=== PATIENT | male | born 1955 | race Caucasian/White ===

== ENCOUNTER 2016-11-18 12:51 | Emergency (ER) | payer MEDICAID ==
[~2016-11-18] VITALS: Ht 172.7 cm; Wt 75.0 kg
[~2016-11-18 12:51] MED LIST: NOCURR
[2016-11-18] MEDS ORDERED: [UNRECOGNIZED DRUG - CODE] TP (13:02)
[2016-11-18] MEDS ORDERED: KETOROLAC TROMETHAMINE 60 MG/2 ML VIAL IM ONE (14:30)
[2016-11-18 15:21] VITALS: BP 130/74
== END 2016-11-18 15:22 | disposition home or self-care (01) ==
LOC: EMS 12:54
DX: M17.0 Bilateral primary osteoarthritis of knee (principal); M16.11 Unilateral primary osteoarthritis, right hip; F15.90 Other stimulant use, unspecified, uncomplicated; F17.210 Nicotine dependence, cigarettes, uncomplicated
CPT/HCPCS: 96372; 99283; J1885

== ENCOUNTER 2016-12-04 16:19 | Emergency (ER) | payer MEDICAID ==
[~2016-12-04] VITALS: Ht 172.7 cm; Wt 77.0 kg
[~2016-12-04 16:19] MED LIST changes: +[UNRECOGNIZED DRUG - CODE] TP
[2016-12-04] MEDS ORDERED: TRAM50TA4 PO (16:34)
[2016-12-04] MEDS ORDERED: KETOROLAC TROMETHAMINE 60 MG/2 ML VIAL IM ONE (17:30)
[2016-12-04] MEDS ORDERED: HYDROCODONE/ACETAMINOPHEN 10-325 MG TABLET PO ONE (17:30)
[2016-12-04 18:15] VITALS: BP 128/86
== END 2016-12-04 18:30 | disposition home or self-care (01) ==
LOC: EMS 16:20
DX: M25.551 Pain in right hip (principal); M79.651 Pain in right thigh; M19.90 Unspecified osteoarthritis, unspecified site; G89.29 Other chronic pain; F17.210 Nicotine dependence, cigarettes, uncomplicated; F19.90 Other psychoactive substance use, unspecified, uncomplicated
CPT/HCPCS: 96372; 99283; J1885

== ENCOUNTER 2017-03-30 19:27 | Emergency (ER) | payer MEDICAID ==
[~2017-03-30] VITALS: Ht 170.2 cm; Wt 72.5 kg
[~2017-03-30 19:27] MED LIST changes: -NOCURR; +TRAM50TA4 PO; -[UNRECOGNIZED DRUG - CODE] TP
[2017-03-30 21:13] LABS: EOSINOPHILS % (AUTO) 3.2 % (1.0-6.0); HEMOGLOBIN 9.7 g/dL (13.5-17.5); LYMPHOCYTES # (AUTO) 1.7 K/uL (1.0-4.8); LYMPHOCYTES % (AUTO) 27.1 % (22.0-44.0); MEAN CORPUSCULAR HEMOGLOBIN 21.1 pg (26.0-34.0); MEAN CORPUSCULAR HGB CONC 30.3 G/dL (31.0-37.0); MEAN CORPUSCULAR VOLUME 70 fL (80-100); MONOCYTES # (AUTO) 1.1 K/uL (0.1-1.0); MONOCYTES % (AUTO) 17.1 % (2.0-9.0); NEUTROPHILS # (AUTO) 3.3 K/uL (1.8-7.7); NEUTROPHILS % (AUTO) 52.6 % (40.0-70.0); PLATELET COUNT (AUTO) 499 K/uL (150-450); RED BLOOD CELL COUNT(AUTO) 4.59 MIL/uL (4.50-5.90); RED CELL DISTRIBUTION WIDTH 22.7 % (11.5-14.5); WHITE BLOOD COUNT (AUTO) 6.2 K/uL (4.5-11.0)
[2017-03-30 21:21] LABS: INR 1.1 (0.9-1.1); PROTHROMBIN TIME 11.4 SEC (9.4-11.6)
[2017-03-30 21:31] LABS: RBC MORPHOLOGY COMMENT ABNORMAL RBC MORPH
[2017-03-30 21:39] VITALS: BP 158/96
== END 2017-03-30 22:00 | disposition home or self-care (01) ==
LOC: EMS 19:35
DX: R04.0 Epistaxis (principal); F17.210 Nicotine dependence, cigarettes, uncomplicated; F19.90 Other psychoactive substance use, unspecified, uncomplicated
CPT/HCPCS: 99284

== ENCOUNTER 2017-09-08 13:28 | Emergency (ER) | payer MEDICAID ==
[~2017-09-08] VITALS: Ht 177.8 cm; Wt 68.2 kg
[2017-09-08] MEDS ORDERED: KETOROLAC TROMETHAMINE 60 MG/2 ML VIAL IM ONE (16:30)
[2017-09-08 16:45] VITALS: BP 149/78
== END 2017-09-08 16:55 | disposition home or self-care (01) ==
LOC: EMS 13:29
DX: M54.32 Sciatica, left side (principal); R03.0 Elevated blood-pressure reading, without diagnosis of hypertension; F17.210 Nicotine dependence, cigarettes, uncomplicated; F15.10 Other stimulant abuse, uncomplicated; M19.90 Unspecified osteoarthritis, unspecified site; Z59.0 Homelessness
CPT/HCPCS: 96372; 99283; J1885

== ENCOUNTER 2018-01-16 14:34 | Emergency (ER) | payer MEDICAID ==
[~2018-01-16] VITALS: Ht 170.2 cm; Wt 77.3 kg
[2018-01-16 15:49] VITALS: BP 163/86
[2018-01-16] MEDS ORDERED: IBUPROFEN 600 MG TABLET PO ONE (16:15)
== END 2018-01-16 16:29 | disposition home or self-care (01) ==
LOC: EMS 14:36
DX: K02.9 Dental caries, unspecified (principal); R03.0 Elevated blood-pressure reading, without diagnosis of hypertension; F15.90 Other stimulant use, unspecified, uncomplicated; F17.210 Nicotine dependence, cigarettes, uncomplicated; Z59.0 Homelessness
CPT/HCPCS: 99283

== ENCOUNTER 2019-01-19 16:41 | Emergency (ER) | payer SELFPAY ==
[~2019-01-19] VITALS: Ht 175.3 cm; Wt 77.3 kg
[2019-01-19] MEDS ORDERED: PENICILLIN V POTASSIUM 500 MG TABLET PO ONE (17:45)
[2019-01-19] MEDS ORDERED: IBUPROFEN 600 MG TABLET PO ONE (17:45)
[2019-01-19 18:32] VITALS: BP 140/89
== END 2019-01-19 18:48 | disposition home or self-care (01) ==
LOC: EMS 16:43
DX: S80.01XA Contusion of right knee, initial encounter (principal); K08.89 Other specified disorders of teeth and supporting structures; R03.0 Elevated blood-pressure reading, without diagnosis of hypertension; M19.90 Unspecified osteoarthritis, unspecified site; F17.210 Nicotine dependence, cigarettes, uncomplicated; F15.90 Other stimulant use, unspecified, uncomplicated; Z59.0 Homelessness; W14.XXXA Fall from tree, initial encounter; Y93.89 Activity, other specified; Y92.89 Other specified places as the place of occurrence of the external cause; Y99.8 Other external cause status

== ENCOUNTER 2021-09-07 19:34 | Emergency (ER) | payer MEDICAID ==
[~2021-09-07] VITALS: Ht 172.7 cm; Wt 71.8 kg
[2021-09-07 21:01] LABS: EOSINOPHILS % (AUTO) 3.1 % (1.0-6.0); HEMATOCRIT 37.8 % (41-53); HEMOGLOBIN 12.5 g/dL (13.5-17.5); LYMPHOCYTES # (AUTO) 1.6 K/uL (1.0-4.8); LYMPHOCYTES % (AUTO) 16.4 % (22.0-44.0); MEAN CORPUSCULAR HEMOGLOBIN 27.8 pg (26.0-34.0); MEAN CORPUSCULAR HGB CONC 32.9 G/dL (31.0-37.0); MEAN CORPUSCULAR VOLUME 85 fL (80-100); MONOCYTES # (AUTO) 0.8 K/uL (0.1-1.0); MONOCYTES % (AUTO) 8.4 % (2.0-9.0); NEUTROPHILS # (AUTO) 6.8 K/uL (1.8-7.7); NEUTROPHILS % (AUTO) 71.1 % (40.0-70.0); RED BLOOD CELL COUNT(AUTO) 4.48 MIL/uL (4.50-5.90); RED CELL DISTRIBUTION WIDTH 22.3 % (11.5-14.5)
[2021-09-07 21:05] LABS: PLATELET COUNT (AUTO) 853 K/uL (150-450)
[2021-09-07 21:14] LABS: ANION GAP 5 mmol/L (8-16); CALCIUM, TOTAL 8.1 mg/dL (8.8-10.5); CARBON DIOXIDE 30 mmol/L (22-29); CHLORIDE 105 mmol/L (98-107); CREATININE 0.92 mg/dL (0.60-1.30); GLOMERULAR FILTR. RATE CALC > 60 mL/min (>60); GLUCOSE,RANDOM 113 mg/dL (70-110); SODIUM SERUM 140 mmol/L (136-145); UREA NITROGEN, BLOOD 21 mg/dL (7-18)
[2021-09-07 21:17] LABS: ALANINE AMINOTRANSFERASE 30 U/L (12-78); ALBUMIN 3.1 g/dL (3.4-5.0); ALKALINE PHOSPHATASE 78 U/L (46-116); ASPARTATE AMINOTRANSFERASE 20 U/L (15-37); BILIRUBIN,TOTAL 0.2 mg/dL (0.1-1.0); TOTAL PROTEIN, SERUM 6.8 g/dL (6.4-8.2)
[2021-09-07 21:19] LABS: B-TYPE NATRIURETIC PEPTIDE 400 pg/mL (0-100)
[2021-09-07 21:40] LABS: PLATELET MORPHOLOGY COMMENT GIANT PLTS PRESENT
[2021-09-07] MEDS: FUROSEMIDE 20 MG TABLET PO ONE (21:59)
[2021-09-07 22:00] VITALS: BP 141/75
[2021-09-07] MEDS ORDERED: CEPH500B PO (22:00)
[2021-09-07] MEDS ORDERED: FURO-152 PO (22:03)
[2021-09-07] MEDS: CEPHALEXIN MONOHYDRATE 500 MG CAPSULE PO ONE (22:15)
== END 2021-09-07 22:45 | disposition home or self-care (01) ==
LOC: EMS 19:37
DX: L03.116 Cellulitis of left lower limb (principal); L03.115 Cellulitis of right lower limb; R60.0 Localized edema; D75.839 Thrombocytosis, unspecified; M19.90 Unspecified osteoarthritis, unspecified site; F17.210 Nicotine dependence, cigarettes, uncomplicated; F12.90 Cannabis use, unspecified, uncomplicated; F15.90 Other stimulant use, unspecified, uncomplicated
CPT/HCPCS: 71045; 80053; 83880; 84484; 85025; 85379; 93005; 93970; 99285; 36415-L1; 36415-TC

== ENCOUNTER 2022-05-21 18:04 | Emergency (ER) | payer MEDICAID ==
[~2022-05-21] VITALS: Ht 172.7 cm; Wt 73.6 kg
[~2022-05-21 18:04] MED LIST changes: +CEPH500C3 PO; +FURO-152 PO; -TRAM50TA4 PO
[2022-05-21 19:47] LABS: COVID AG,FIA SOURCE NASOPHARYNGEAL
[2022-05-21 19:52] LABS: INFLUENZA TYPE A NEGATIVE FOR TYPE A (NEGATIVE); INFLUENZA TYPE B NEGATIVE FOR TYPE B (NEGATIVE)
[2022-05-21] MEDS ORDERED: BENZ-70 PO ×2 (21:04→21:30)
[2022-05-21 21:25] VITALS: BP 129/78
== END 2022-05-21 21:36 | disposition home or self-care (01) ==
LOC: EMS 18:05
DX: U07.1 COVID-19 (principal); M79.671 Pain in right foot; F17.210 Nicotine dependence, cigarettes, uncomplicated; M19.90 Unspecified osteoarthritis, unspecified site; Z59.00 Homelessness unspecified
CPT/HCPCS: 87804; 99283

== ENCOUNTER 2022-06-01 17:37 | Emergency (ER) | payer MEDICAID ==
[~2022-06-01] VITALS: Ht 167.6 cm; Wt 65.9 kg
[~2022-06-01 17:37] MED LIST changes: +BENZ-70 PO; -CEPH500C3 PO; -FURO-152 PO
[2022-06-01 17:39] VITALS: BP 155/78
[2022-06-01 17:54] LABS: COVID AG,FIA SOURCE NASAL SWAB
== END 2022-06-01 19:19 | disposition home or self-care (01) ==
LOC: EMS 17:42
DX: F17.210 Nicotine dependence, cigarettes, uncomplicated (principal); M19.90 Unspecified osteoarthritis, unspecified site; Z20.822 Contact with and (suspected) exposure to COVID-19
CPT/HCPCS: 99283

== ENCOUNTER 2022-06-29 13:08 | Emergency (ER) | payer MEDICAID ==
[~2022-06-29] VITALS: Ht 167.6 cm; Wt 65.9 kg
[2022-06-29] MEDS ORDERED: ONDANSETRON HCL 4 MG/2 ML VIAL IM ONE (17:15)
[2022-06-29] MEDS ORDERED: LORazepam 2 MG/ML VIAL IM ONE (17:15)
[2022-06-29] MEDS ORDERED: HYDROmorphone HCL 2 MG/ML SYRINGE IM ONE (17:15)
[2022-06-29 18:26] VITALS: BP 117/69
[2022-06-29] MEDS ORDERED: POLY238P PO (20:07)
[2022-06-29] MEDS ORDERED: AMOX1TAB16 PO (20:07)
== END 2022-06-29 22:02 | disposition home or self-care (01) ==
LOC: EMS 13:13
DX: T18.5XXA Foreign body in anus and rectum, initial encounter (principal); F15.10 Other stimulant abuse, uncomplicated; M19.90 Unspecified osteoarthritis, unspecified site; F17.210 Nicotine dependence, cigarettes, uncomplicated; Z59.00 Homelessness unspecified; X58.XXXA Exposure to other specified factors, initial encounter; Y93.89 Activity, other specified; Y92.89 Other specified places as the place of occurrence of the external cause; Y99.8 Other external cause status
CPT/HCPCS: 99284; 74018; 96372; J1170; J2060; J2405

== ENCOUNTER 2022-09-17 19:15 | Emergency (ER) | payer MEDICAID ==
[~2022-09-17] VITALS: Ht 152.4 cm; Wt 67.3 kg
[2022-09-17 19:33] VITALS: BP 140/88
[2022-09-17] MEDS ORDERED: IBUP-1492 PO (19:50)
[2022-09-17] MEDS ORDERED: KETOROLAC TROMETHAMINE 30 MG/ML VIAL IM ONE (20:00)
== END 2022-09-17 20:47 | disposition home or self-care (01) ==
LOC: EMS 19:22
DX: M79.672 Pain in left foot (principal); M19.90 Unspecified osteoarthritis, unspecified site; F17.210 Nicotine dependence, cigarettes, uncomplicated; F15.90 Other stimulant use, unspecified, uncomplicated; Z59.00 Homelessness unspecified
CPT/HCPCS: 99283; 96372; J1885

== ENCOUNTER 2022-09-30 22:36 | Emergency (ER) | payer MEDICAID ==
[~2022-09-30] VITALS: Ht 170.2 cm; Wt 70.5 kg
[~2022-09-30 22:36] MED LIST changes: -BENZ-70 PO; +IBUP-1492 PO
[2022-10-01] MEDS ORDERED: KETOROLAC TROMETHAMINE 30 MG/ML VIAL IM ONE (00:30)
[2022-10-01] MEDS ORDERED: ACETAMINOPHEN 500 MG TABLET PO ONE (00:30)
[2022-10-01 01:15] VITALS: BP 152/91
== END 2022-10-01 01:42 | disposition home or self-care (01) ==
LOC: EMS 22:41
DX: M79.675 Pain in left toe(s) (principal); F15.90 Other stimulant use, unspecified, uncomplicated; F17.210 Nicotine dependence, cigarettes, uncomplicated; M19.90 Unspecified osteoarthritis, unspecified site; Z59.00 Homelessness unspecified
CPT/HCPCS: 99283; 96372; J1885

== ENCOUNTER 2023-03-22 17:16 | Emergency (ER) | payer MEDICAID ==
[~2023-03-22] VITALS: Ht 170.2 cm; Wt 65.9 kg
[~2023-03-22 17:16] MED LIST changes: +ASPI-1444 PO; +FURO20 PO; -IBUP-1492 PO; +LOSA-382 PO; +METO-558 PO; +SPIR-37 PO
[2023-03-22 17:33] VITALS: BP 151/65; PULSE 76; RESP 18; TEMP 98.2
== END 2023-03-22 19:00 | disposition left against medical advice (07) ==
LOC: EMS 17:17
DX: Z02.79 Encounter for issue of other medical certificate (principal); Z53.21 Procedure and treatment not carried out due to patient leaving prior to being seen by health care provider
CPT/HCPCS: 99281; Z7502

== ENCOUNTER 2023-08-13 19:36 | Inpatient (IN) | payer MEDICAID ==
[~2023-08-13] VITALS: Ht 170.2 cm; Wt 55.4 kg
[~2023-08-13 19:36] MED LIST changes: -SPIR-37 PO
[2023-08-13 20:11] LABS: GLUCOMETER DEV NAME(LOC) ER.6; GLUCOSE,POINT OF CARE 127 MG/DL (70-110)
[2023-08-13 21:12] LABS: COVID AG,FIA SOURCE NASAL SWAB
[2023-08-13 21:24] LABS: SARS-COV2 (COVID) ANTIGEN,FIA Negative (Negative)
[2023-08-13 21:33] LABS: APPEARANCE,URINE CLEAR (CLEAR); BILIRUBIN,URINE NEGATIVE (NEGATIVE); COLOR,URINE LIGHT YELLOW (YELLOW); GLUCOSE, URINE (UA) NEGATIVE (NEGATIVE); KETONES,URINE NEGATIVE (NEGATIVE); LEUKOCYTE ESTERASE ,URINE NEGATIVE (NEGATIVE); NITRATE,URINE NEGATIVE (NEGATIVE); OCCULT BLOOD,URINE NEGATIVE (NEGATIVE); PH,URINE 5.5 (5.0-8.0); PROTEIN,URINE 30-70 mg/dL (NEGATIVE); SPECIFIC GRAVITIY, URINE 1.011 (1.003-1.030); UROBILINOGEN,URINE <=1.0 mg/dL (<=1.0)
[2023-08-13 21:33] LABS: BASOPHILS % (AUTO) 1.2 % (0.0-2.0); CALCIUM, TOTAL 8.4 mg/dL (8.8-10.5); CREATININE 1.33 mg/dL (0.60-1.30); EOSINOPHILS % (AUTO) 1.2 % (1.0-6.0); HEMOGLOBIN 10.6 g/dL (13.5-17.5); LYMPHOCYTES # (AUTO) 1.5 K/uL (1.0-4.8); LYMPHOCYTES % (AUTO) 6.2 % (22.0-44.0); MEAN CORPUSCULAR HGB CONC 30.3 G/dL (31.0-37.0); MEAN CORPUSCULAR VOLUME 69 fL (80-100); MONOCYTES # (AUTO) 1.2 K/uL (0.1-1.0); MONOCYTES % (AUTO) 4.9 % (2.0-9.0); NEUTROPHILS # (AUTO) 20.9 K/uL (1.8-7.7); POTASSIUM 3.9 mmol/L (3.5-5.1); RED BLOOD CELL COUNT(AUTO) 5.05 MIL/uL (4.50-5.90); RED CELL DISTRIBUTION WIDTH 22.6 % (11.5-14.5); WHITE BLOOD COUNT (AUTO) 24.2 K/uL (4.5-11.0)
[2023-08-13 21:37] LABS: NEUTROPHILS % (AUTO) 86.5 % (40.0-70.0); PLATELET COUNT (AUTO) 932 K/uL (150-450)
[2023-08-13 21:44] LABS: TROPONIN I-HIGH SENSITIVITY 34 ng/L (<76)
[2023-08-13 21:58] LABS: ALBUMIN 3.1 g/dL (3.4-5.0); BILIRUBIN,TOTAL 0.4 mg/dL (0.1-1.0); TOTAL PROTEIN, SERUM 6.9 g/dL (6.4-8.2)
[2023-08-13 21:59] LABS: RBC MORPHOLOGY COMMENT ABNORMAL RBC MORPH
[2023-08-13] MEDS: FUROSEMIDE 40 MG/4 ML VIAL IVP ONE (22:50)
[2023-08-13] MEDS: ASPIRIN 325 MG TABLET PO ONE (22:50)
[2023-08-13 23:48] LABS: INR 1.2 (0.9-1.1); LACTIC ACID 0.8 mmol/L (0.4-2.0); PROTHROMBIN TIME 12.4 SEC (9.4-11.6)
[2023-08-13] MEDS: METOPROLOL SUCCINATE 50 MG ER TABLET PO ONE (23:51)
[2023-08-13] MEDS: CefTRIAXone 1 GM/DEXTROSE 50 ML IV ONE (23:57)
[2023-08-14] MEDS: AZITHROMYCIN 500 MG/NS 250 ML IV ONE (00:01)
[2023-08-14 04:00] VITALS: BP 148/76; PULSE 75; RESP 18; TEMP 97.9
[2023-08-14 07:43] VITALS: BP 143/86; PULSE 67; RESP 18; TEMP 97.8
[2023-08-14] MEDS ORDERED: IPRATROPIUM BROMIDE 0.5 MG/2.5 ML NEB SOLUTION NEB PRN (08:45)
[2023-08-14] MEDS ORDERED: ONDANSETRON HCL 4 MG/2 ML VIAL IVP PRN (08:45)
[2023-08-14] MEDS ORDERED: ZOLPIDEM TARTRATE 5 MG TABLET PO PRN (08:45)
[2023-08-14] MEDS ORDERED: MORPHINE SULFATE 2 MG/ML SYRINGE IVP PRN (08:45)
[2023-08-14] MEDS ORDERED: ALBUTEROL SULFATE 2.5 MG/0.5 ML NEB SOLUTION NEB PRN (08:45)
[2023-08-14] MEDS ORDERED: HYDROCODONE/ACETAMINOPHEN 5-325 MG TABLET PO PRN (08:45)
[2023-08-14] MEDS ORDERED: BISACODYL 10 MG RECTAL RECTAL SUPPOSITORY PR PRN (08:45)
[2023-08-14] MEDS ORDERED: MAGNESIUM HYDROXIDE SUSPENSION 30 ML UDCUP PO PRN (08:45)
[2023-08-14] MEDS ORDERED: ACETAMINOPHEN 325 MG TABLET PO PRN (08:45)
[2023-08-14] MEDS: ASPIRIN 81 MG DR TABLET PO SCH (09:43)
[2023-08-14] MEDS: LOSARTAN POTASSIUM 50 MG TABLET PO SCH (09:43)
[2023-08-14] MEDS: PANTOPRAZOLE SODIUM 40 MG DR TABLET PO SCH (09:43)
[2023-08-14] MEDS: METOPROLOL SUCCINATE 50 MG ER TABLET PO SCH (09:43)
[2023-08-14] MEDS: FUROSEMIDE 40 MG/4 ML VIAL IVP SCH (09:44)
[2023-08-14 12:26] VITALS: BP 139/70; PULSE 66; RESP 18; TEMP 98
[2023-08-14] MEDS: HEPARIN SODIUM,PORCINE 5,000 UNITS/ML VIAL SQ SCH (16:08)
[2023-08-14 16:31] VITALS: BP 122/67; PULSE 58; RESP 18; TEMP 98.4
[2023-08-14 20:24] VITALS: BP 113/71; PULSE 57; RESP 20; TEMP 98
[2023-08-15 00:43] VITALS: BP 135/72; PULSE 58; RESP 20; TEMP 98.3
[2023-08-15 04:52] VITALS: BP 145/89; PULSE 58; RESP 20; TEMP 97.9
[2023-08-15 07:09] LABS: BASOPHILS % (AUTO) 2.3 % (0.0-2.0); EOSINOPHILS % (AUTO) 2.6 % (1.0-6.0); HEMATOCRIT 33.8 % (41-53); HEMOGLOBIN 10.3 g/dL (13.5-17.5); LYMPHOCYTES # (AUTO) 1.9 K/uL (1.0-4.8); LYMPHOCYTES % (AUTO) 10.4 % (22.0-44.0); MEAN CORPUSCULAR HEMOGLOBIN 21.3 pg (26.0-34.0); MEAN CORPUSCULAR HGB CONC 30.6 G/dL (31.0-37.0); MEAN CORPUSCULAR VOLUME 70 fL (80-100); MONOCYTES # (AUTO) 1.3 K/uL (0.1-1.0); NEUTROPHILS # (AUTO) 14.2 K/uL (1.8-7.7); NEUTROPHILS % (AUTO) 77.7 % (40.0-70.0); RED BLOOD CELL COUNT(AUTO) 4.86 MIL/uL (4.50-5.90); RED CELL DISTRIBUTION WIDTH 22.4 % (11.5-14.5); WHITE BLOOD COUNT (AUTO) 18.2 K/uL (4.5-11.0)
[2023-08-15 07:12] LABS: CALCIUM, TOTAL 8.1 mg/dL (8.8-10.5); CREATININE 1.33 mg/dL (0.60-1.30); POTASSIUM 3.9 mmol/L (3.5-5.1)
[2023-08-15 07:25] LABS: PLATELET COUNT (AUTO) 822 K/uL (150-450)
[2023-08-15 08:38] LABS: RBC MORPHOLOGY COMMENT ABNORMAL RBC MORPH
[2023-08-15 09:05] VITALS: BP 132/70; PULSE 59; RESP 18; TEMP 98
[2023-08-15 12:00] VITALS: BP 128/80; PULSE 59; RESP 18; TEMP 98.2
[2023-08-15 15:37] VITALS: BP 142/85; PULSE 61; RESP 18; TEMP 98.2
[2023-08-15 19:53] VITALS: BP 137/69; PULSE 59; RESP 18; TEMP 98.1
[2023-08-15] MEDS ORDERED: SODIUM CHLORIDE 0.9% 0 ML IV ONE (23:49)
[2023-08-15] MEDS ORDERED: SODIUM CHLORIDE 0.9% 250 ML IV ONE (23:50)
[2023-08-16] VITALS (7 sets, daily range): BP systolic 127–156; BP diastolic 62–83; PULSE 62–69; RESP 17–20; TEMP 97–98.9
[2023-08-16] MEDS: CefTRIAXone 1 GM/DEXTROSE 50 ML IV SCH (00:43)
[2023-08-16 07:33] LABS: BASOPHILS % (AUTO) 1.4 % (0.0-2.0); EOSINOPHILS % (AUTO) 2.2 % (1.0-6.0); HEMATOCRIT 34.4 % (41-53); HEMOGLOBIN 10.5 g/dL (13.5-17.5); LYMPHOCYTES # (AUTO) 1.9 K/uL (1.0-4.8); LYMPHOCYTES % (AUTO) 8.6 % (22.0-44.0); MEAN CORPUSCULAR HEMOGLOBIN 21.1 pg (26.0-34.0); MEAN CORPUSCULAR HGB CONC 30.5 G/dL (31.0-37.0); MEAN CORPUSCULAR VOLUME 69 fL (80-100); MONOCYTES # (AUTO) 1.6 K/uL (0.1-1.0); MONOCYTES % (AUTO) 7.4 % (2.0-9.0); NEUTROPHILS # (AUTO) 17.4 K/uL (1.8-7.7); NEUTROPHILS % (AUTO) 80.4 % (40.0-70.0); RED BLOOD CELL COUNT(AUTO) 4.98 MIL/uL (4.50-5.90); RED CELL DISTRIBUTION WIDTH 22.5 % (11.5-14.5); WHITE BLOOD COUNT (AUTO) 21.7 K/uL (4.5-11.0)
[2023-08-16 07:47] LABS: CALCIUM, TOTAL 8.3 mg/dL (8.8-10.5); CREATININE 1.21 mg/dL (0.60-1.30); POTASSIUM 3.7 mmol/L (3.5-5.1)
[2023-08-16 08:01] LABS: PLATELET COUNT (AUTO) 896 K/uL (150-450); RBC MORPHOLOGY COMMENT ABNORMAL RBC MORPH
[2023-08-16] MEDS ORDERED: FURO20 PO (15:20)
[2023-08-16] MEDS ORDERED: DOXY-354 PO (15:20)
[2023-08-16] MEDS ORDERED: METO-558 PO (15:20)
[2023-08-16] MEDS ORDERED: LOSA-382 PO (15:20)
[2023-08-16] MEDS ORDERED: ASPI-1444 PO (15:20)
[2023-08-16] MEDS: VANCOMYCIN HCL 1.25 GM in DEXTROSE 5%-WATER 250 ML IV ONE (17:46)
[2023-08-17 05:04] VITALS: BP 148/64; PULSE 66; RESP 18; TEMP 98.1
[2023-08-17 06:11] LABS: CALCIUM, TOTAL 8.7 mg/dL (8.8-10.5); CREATININE 1.34 mg/dL (0.60-1.30); POTASSIUM 4.4 mmol/L (3.5-5.1)
[2023-08-17 08:25] VITALS: BP 140/72; PULSE 66; RESP 18; TEMP 98.3
[2023-08-17] MEDS: VANCOMYCIN HCL 750 MG in DEXTROSE 5%-WATER 250 ML IV SCH (09:07)
[2023-08-17 11:26] VITALS: BP 135/63; PULSE 69; RESP 18; TEMP 98.1
[2023-08-17 15:27] VITALS: BP 144/70; PULSE 69; RESP 19; TEMP 97.7
[2023-08-17] MEDS ORDERED: CLOT15CR29 TP (17:27)
[2023-08-17] MEDS ORDERED: CLOTRIMAZOLE 1% 15 GM CREAM TP SCH (21:00)
== END 2023-08-17 18:45 | disposition home or self-care (01) | DRG 194 ==
LOC: EMS 19:46 → 5S 08-14 00:29
PROVIDERS: ADMIT Hospitalist; ATTEND Hospitalist
DX: I11.0 Hypertensive heart disease with heart failure (principal); N17.9 Acute kidney failure, unspecified; E44.0 Moderate protein-calorie malnutrition; I42.9 Cardiomyopathy, unspecified; B35.3 Tinea pedis; D64.9 Anemia, unspecified; I50.43 Acute on chronic combined systolic (congestive) and diastolic (congestive) heart failure; Z68.1 Body mass index [BMI] 19.9 or less, adult; Z20.822 Contact with and (suspected) exposure to COVID-19; D75.839 Thrombocytosis, unspecified; I07.1 Rheumatic tricuspid insufficiency; F15.10 Other stimulant abuse, uncomplicated; F17.210 Nicotine dependence, cigarettes, uncomplicated; Z59.02 Unsheltered homelessness
CPT/HCPCS: 71045; 80048; 80053; 81003; 82550; 82962; 83605; 83880; 84145; 84484; 85025; 85610; 87040; 93005; 99291; J0456; J0696; J1644; J1940; J3370; J7040; J7050; J7060; 36415-L1; 36415-TC

== ENCOUNTER 2023-08-19 15:55 | Emergency (ER) | payer MEDICAID ==
[~2023-08-19] VITALS: Ht 180.3 cm; Wt 72.0 kg
[~2023-08-19 15:55] MED LIST changes: +CLOT15CR29 TP; +DOXY-354 PO
[2023-08-19 16:11] VITALS: TEMP 98.3
[2023-08-19 18:07] VITALS: BP 150/88; PULSE 85; RESP 16
== END 2023-08-19 18:08 | disposition home or self-care (01) ==
LOC: EMS 15:59
DX: N50.89 Other specified disorders of the male genital organs (principal); F17.210 Nicotine dependence, cigarettes, uncomplicated; Z59.00 Homelessness unspecified
CPT/HCPCS: 99283

== ENCOUNTER 2024-09-15 13:54 | Emergency (ER) | payer MEDICAID ==
[~2024-09-15] VITALS: Ht 167.6 cm; Wt 70.5 kg
[~2024-09-15 13:54] MED LIST changes: -CLOT15CR29 TP; -DOXY-354 PO; -FURO20 PO; +FURO20TA5 PO; +METO-325 PO; -METO-558 PO
[2024-09-15 13:58] VITALS: TEMP 98.1
[2024-09-15] MEDS ORDERED: CARV3.1231 PO (14:00)
[2024-09-15] MEDS ORDERED: FURO20TA4 PO (14:00)
[2024-09-15] MEDS ORDERED: HYDR500 PO (14:00)
[2024-09-15] MEDS ORDERED: AMLO-513 PO (14:00)
[2024-09-15] MEDS ORDERED: TERB250T90 PO (14:47)
[2024-09-15] MEDS ORDERED: CEPH-558 PO (14:47)
[2024-09-15 15:10] VITALS: BP 148/72; PULSE 70; RESP 16; O2SAT 99
== END 2024-09-15 15:32 | disposition home or self-care (01) ==
LOC: EMS 13:56
DX: B35.1 Tinea unguium (principal); I11.0 Hypertensive heart disease with heart failure; I50.9 Heart failure, unspecified; F17.210 Nicotine dependence, cigarettes, uncomplicated; Z59.00 Homelessness unspecified; Z79.64 Long term (current) use of myelosuppressive agent; Z79.899 Other long term (current) drug therapy
CPT/HCPCS: 99283; Z7502

== ENCOUNTER 2025-02-18 20:46 | Inpatient (IN) | payer MEDICAID ==
[~2025-02-18] VITALS: Ht 177.8 cm; Wt 81.9 kg
[~2025-02-18 20:46] MED LIST changes: +AMLO-513 PO; -ASPI-1444 PO; +CALCIUM CHLORIDE 100 MG/ML 10 ML SYRINGE IVP ONE; +CARV3.1231 PO; +CEPH-558 PO; +EPINEPHrine 1:10,000 [1 MG/10 ML] SYRINGE ONE; +FURO20TA4 PO; -FURO20TA5 PO; +HYDR500 PO; -LOSA-382 PO; -METO-325 PO; +SODIUM BICARBONATE [ADULT] 8.4% 50 MEQ/50 ML SYRINGE IVP ONE; +TERB250T90 PO; +VERAPAMIL HCL 2.5 MG/ML 2 ML VIAL ONE
[2025-02-18 22:31] LABS: GLUCOMETER DEV NAME(LOC) ERT.7; GLUCOSE,POINT OF CARE 179 MG/DL (70-110)
[2025-02-18 22:33] LABS: CALCIUM, TOTAL 8.5 mg/dL (8.8-10.5); CREATININE 4.68 mg/dL (0.60-1.30); GLOMERULAR FILTR. RATE CALC 12 mL/min (>60); GLUCOSE,RANDOM 242 mg/dL (70-110); SODIUM SERUM 158 mmol/L (136-145)
[2025-02-18 22:34] LABS: RED BLOOD CELL COUNT(AUTO) 2.22 MIL/uL (4.50-5.90); RED CELL DISTRIBUTION WIDTH 25.4 % (11.5-14.5)
[2025-02-18 22:36] LABS: ALCOHOL, BLOOD (SERUM) < 3 mg/dL (0-10)
[2025-02-18 22:38] LABS: UREA NITROGEN, BLOOD 116 mg/dL (7-18)
[2025-02-18 22:39] LABS: ASPARTATE AMINOTRANSFERASE 57 U/L (15-37); CREATINE KINASE, TOTAL ONLY 924 U/L (39-308); PLATELET COUNT (AUTO) 1869 K/uL (150-450); TOTAL PROTEIN, SERUM 6.3 g/dL (6.4-8.2); WHITE BLOOD COUNT (AUTO) 87.7 K/uL (4.5-11.0)
[2025-02-18 22:47] LABS: TROPONIN I-HIGH SENSITIVITY 42 ng/L (<76)
[2025-02-18 22:56] LABS: LACTIC ACID 19.7 mmol/L (0.4-2.0)
[2025-02-18 22:58] LABS: BAND NEUTROPHILS % (MANUAL) 7 % (0-5); LYMPHOCYTES % (MANUAL) 13 % (22-44); MONOCYTES % (MANUAL) 3 % (2-9); REACTIVE LYMPHOCYTES 5 % (0-0); SEGMENTED NEUTROPHILS % 72 % (40-70)
[2025-02-18 23:00] LABS: NUCLEATED RED BLOOD CELLS 2.0 % (0.0-0.0)
[2025-02-18] MEDS ORDERED: INSULIN LISPRO 100 UNITS/ML SQ PRN (23:00)
[2025-02-18] MEDS ORDERED: ONDANSETRON HCL 4 MG/2 ML VIAL IVP PRN (23:00)
[2025-02-18] MEDS ORDERED: ACETAMINOPHEN 325 MG TABLET PO PRN (23:00)
[2025-02-18 23:07] LABS: PLATELET MORPHOLOGY COMMENT GIANT PLTS; RBC MORPHOLOGY COMMENT DIMORPHIC
[2025-02-18] MEDS: SODIUM CHLORIDE 0.9% 2,150 ML IV ONE (23:09)
[2025-02-18] MEDS: PROPOFOL 1000 MG/ISO-OSM 100 ML IV PRN (23:10)
[2025-02-18 23:25] VITALS: PULSE 74; RESP 22; O2SAT 74; O2SAT 92
[2025-02-18] MEDS: DEXTROSE 50%-WATER 25 GM/50 ML SYRINGE IVP ONE (23:30)
[2025-02-18] MEDS: INSULIN REGULAR, HUMAN 100 UNITS/ML IVP ONE (23:31)
[2025-02-18] MEDS: PIPERACILLIN/TAZO 3.375 GM/D5W 50 ML IV ONE (23:34)
[2025-02-18 23:45] LABS: GLUCOMETER DEV NAME(LOC) ER.7; GLUCOSE,POINT OF CARE 121 MG/DL (70-110)
[2025-02-18] MEDS ORDERED: PANTOPRAZOLE SODIUM 40 MG/VIAL IVP SCH (23:45)
[2025-02-18] MEDS: VANCOMYCIN 1GM/WATER(PEG/NADA) 200 ML IV ONE (23:49)
[2025-02-19] VITALS (44 sets, daily range): BP systolic 90–158; BP diastolic 36–70; PULSE 65–104; RESP 18–30; TEMP 90.4–100.5; O2SAT 95–100
[2025-02-19] MEDS ORDERED: HEPARIN SODIUM,PORCINE 5,000 UNITS/ML VIAL SQ SCH
[2025-02-19] MEDS: PANTOPRAZOLE SODIUM 80 MG in SODIUM CHLORIDE 0.9% 100 ML IV SCH (00:10)
[2025-02-19 00:20] LABS: % IRON SATURATION 3.6 % (30-44); IRON, SERUM 12.0 mcg/dL (50-175)
[2025-02-19] MEDS: NOREPINEPHRINE 8 MG/0.9 % NACL 250 ML IV PRN ×2 (00:56→21:04)
[2025-02-19 01:28] LABS: ABG BASE EXCESS -24.9 mmol/L (-2.0-3.0); ABG CARBOXYHEMOGLOBIN 0.4 % (0.5-1.5); ABG HCO3 6.9 mmol/L (21.0-28.0); ABG METHEMOGLOBIN 3.5 % (0.0-1.5); ABG OXYGEN CONTENT 7.1 mL/dL (15.0-23.0); ABG OXYGEN SATURATION 99.7 % (94.0-98.0); ABG OXYHEMOGLOBIN 95.8 % (94.0-98.0); ABG PCO2 29 mmHg (32.0-48.0); FRACTIONATED INSPIRED OXYGEN 100.0 % (21-100.0); SOURCE, BLOOD GAS ARTERIAL; TEMPERATURE, FAHRENHEIT, BG 89.7 FAHREN (96.0-98.6)
[2025-02-19 01:29] LABS: ABG PH 6.991 (7.350-7.450); PO2, ARTERIAL BG 476.7 mmHg (83.0-108.0)
[2025-02-19 01:31] LABS: ABG A-A DIFF O2 218.5 mmHg (10-20.0); ABG TOTAL HEMOGLOBIN 4.1 G/dL (13.5-17.5); ALLEN TEST, BLOOD GAS Positive; SITE, BLOOD GAS RT RADIAL
[2025-02-19 01:32] LABS: INSPIRATORY TIME, BG 0.90 SEC; O2 DEVICE,BLOOD GAS VENTILATOR (ROOM AIR); PATIENT RATE, BG 22.0 min.; PEEP,BG 5 cm H2O; SET RATE, BG 22.0 min.; SPONTANEOUS VT, BG 549 ml; VT, ABG 530 ml
[2025-02-19] MEDS: SODIUM BICARBONATE [ADULT] 8.4% 50 MEQ/50 ML SYRINGE IVP ONE ×2 (01:44→07:00)
[2025-02-19 03:37] LABS: ABG BASE EXCESS -17.9 mmol/L (-2.0-3.0); ABG CARBOXYHEMOGLOBIN 1.5 % (0.5-1.5); ABG HCO3 11.2 mmol/L (21.0-28.0); ABG METHEMOGLOBIN 2.8 % (0.0-1.5); ABG OXYGEN CONTENT 4.3 mL/dL (15.0-23.0); ABG OXYHEMOGLOBIN 60.6 % (94.0-98.0); ABG PCO2 40 mmHg (32.0-48.0); FRACTIONATED INSPIRED OXYGEN 70.0 % (21-100.0); SOURCE, BLOOD GAS ARTERIAL; TEMPERATURE, FAHRENHEIT, BG 91.3 FAHREN (96.0-98.6)
[2025-02-19 03:42] LABS: ABG PH 7.090 (7.350-7.450)
[2025-02-19 03:43] LABS: ABG A-A DIFF O2 425.2 mmHg (10-20.0); ABG OXYGEN SATURATION 63.3 % (94.0-98.0); ABG TOTAL HEMOGLOBIN 4.9 G/dL (13.5-17.5); ALLEN TEST, BLOOD GAS Positive; O2 DEVICE,BLOOD GAS VENTILATOR (ROOM AIR); PO2, ARTERIAL BG 37.2 mmHg (83.0-108.0); SITE, BLOOD GAS LFT RADIAL
[2025-02-19 03:44] LABS: INSPIRATORY TIME, BG 0.90 SEC; PATIENT RATE, BG 18.0 min.; PEEP,BG 5 cm H2O; SET RATE, BG 18.0 min.; SPONTANEOUS VT, BG 524 ml; VT, ABG 530 ml
[2025-02-19] MEDS: FentaNYL CIT 1000MCG/0.9% NACL 100 ML IV PRN ×2 (04:10→18:30)
[2025-02-19] MEDS: LACTULOSE 20 GM/30 ML SOLUTION UDCUP PO SCH (04:11)
[2025-02-19 04:34] LABS: ABG BASE EXCESS -14.3 mmol/L (-2.0-3.0); ABG CARBOXYHEMOGLOBIN 0.7 % (0.5-1.5); ABG HCO3 13.8 mmol/L (21.0-28.0); ABG METHEMOGLOBIN 2.8 % (0.0-1.5); ABG OXYGEN CONTENT 8.1 mL/dL (15.0-23.0); ABG OXYGEN SATURATION 100.0 % (94.0-98.0); ABG OXYHEMOGLOBIN 96.5 % (94.0-98.0); ABG PCO2 33 mmHg (32.0-48.0); FRACTIONATED INSPIRED OXYGEN 70.0 % (21-100.0); SOURCE, BLOOD GAS ARTERIAL; TEMPERATURE, FAHRENHEIT, BG 93.7 FAHREN (96.0-98.6)
[2025-02-19 04:37] LABS: ABG PH 7.224 (7.350-7.450); ABG TOTAL HEMOGLOBIN 5.3 G/dL (13.5-17.5); ALLEN TEST, BLOOD GAS Positive; PO2, ARTERIAL BG 303.0 mmHg (83.0-108.0); SITE, BLOOD GAS LFT RADIAL
[2025-02-19 04:38] LABS: ABG A-A DIFF O2 164.8 mmHg (10-20.0); INSPIRATORY TIME, BG 0.90 SEC; O2 DEVICE,BLOOD GAS VENTILATOR (ROOM AIR); PATIENT RATE, BG 26.0 min.; PEEP,BG 5 cm H2O; SET RATE, BG 18.0 min.; SPONTANEOUS VT, BG 523 ml; VT, ABG 530 ml
[2025-02-19] MEDS: MIDAZOLAM HCL 2 MG/2 ML VIAL IVP ONE (04:51)
[2025-02-19 05:11] LABS: APPEARANCE,URINE TURBID (CLEAR); GLUCOSE, URINE (UA) NEGATIVE (NEGATIVE); LEUKOCYTE ESTERASE ,URINE LARGE (NEGATIVE); NITRATE,URINE NEGATIVE (NEGATIVE); OCCULT BLOOD,URINE LARGE (NEGATIVE); PH,URINE DRUG SCREEN 7.5 (5.0-8.0); SPECIFIC GRAVITIY, URINE 1.019 (1.003-1.030)
[2025-02-19 05:21] LABS: ALCOHOL, URINE DRUG SCREEN NEGATIVE (NEGATIVE); AMPHET/METH SCREEN,URINE POSITIVE (NEGATIVE); BARBITURATE SCREEN, URINE NEGATIVE (NEGATIVE); CANNABINOID SCREEN,URINE NEGATIVE (NEGATIVE); COCAINE SCREEN,URINE NEGATIVE (NEGATIVE); METHADONE SCREEN, URINE NEGATIVE (NEGATIVE)
[2025-02-19 05:29] LABS: SQUAMOUS EPITHELIAL CELL,UR Rare /LPF (None Seen); SULFOSALICYLIC ACID,URINE 2+ (Negative)
[2025-02-19] MEDS: PIPERACILLIN SODIUM/TAZOBACTAM 2.25 GM in DEXTROSE 5%-WATER 50 ML IV SCH ×2 (06:05→19:25)
[2025-02-19 06:19] LABS: RED BLOOD CELL COUNT(AUTO) 2.39 MIL/uL (4.50-5.90); RED CELL DISTRIBUTION WIDTH 26.1 % (11.5-14.5)
[2025-02-19 06:26] LABS: WHITE BLOOD COUNT (AUTO) 74.3 K/uL (4.5-11.0)
[2025-02-19 06:27] LABS: PLATELET COUNT (AUTO) 1490 K/uL (150-450)
[2025-02-19 06:52] LABS: CALCIUM, TOTAL 6.0 mg/dL (8.8-10.5); CREATININE 3.71 mg/dL (0.60-1.30); GLOMERULAR FILTR. RATE CALC 16.0 mL/min (>60); GLUCOSE,RANDOM 70.0 mg/dL (70-110); SODIUM SERUM 159.0 mmol/L (136-145); UREA NITROGEN, BLOOD 99.0 mg/dL (7-18)
[2025-02-19 07:07] LABS: BAND NEUTROPHILS % (MANUAL) 8 % (0-5); LYMPHOCYTES % (MANUAL) 14 % (22-44); MONOCYTES % (MANUAL) 3 % (2-9); REACTIVE LYMPHOCYTES 3 % (0-0); SEGMENTED NEUTROPHILS % 72 % (40-70)
[2025-02-19 07:08] LABS: RBC MORPHOLOGY COMMENT DIMORPHIC
[2025-02-19] MEDS: DOCUSATE SODIUM 100 MG CAPSULE PO SCH (08:07)
[2025-02-19 08:35] LABS: ABG A-A DIFF O2 173.0 mmHg (10-20.0); ABG BASE EXCESS -7.4 mmol/L (-2.0-3.0); ABG CARBOXYHEMOGLOBIN 1.1 % (0.5-1.5); ABG HCO3 18.9 mmol/L (21.0-28.0); ABG METHEMOGLOBIN 0.3 % (0.0-1.5); ABG OXYGEN CONTENT 10.9 mL/dL (15.0-23.0); ABG OXYGEN SATURATION 99.8 % (94.0-98.0); ABG OXYHEMOGLOBIN 98.4 % (94.0-98.0); ABG PCO2 38 mmHg (32.0-48.0); ABG PH 7.311 (7.350-7.450); ABG TOTAL HEMOGLOBIN 7.2 G/dL (13.5-17.5); ALLEN TEST, BLOOD GAS Positive; FRACTIONATED INSPIRED OXYGEN 80.0 % (21-100.0); O2 DEVICE,BLOOD GAS VENTILATOR (ROOM AIR); PATIENT RATE, BG 18.0 min.; PEEP,BG 5 cm H2O; PO2, ARTERIAL BG 354.9 mmHg (83.0-108.0); SET RATE, BG 18.0 min.; SITE, BLOOD GAS RT RADIAL; SOURCE, BLOOD GAS ARTERIAL; TEMPERATURE, FAHRENHEIT, BG 100.6 FAHREN (96.0-98.6); VT, ABG 530 ml
[2025-02-19] MEDS: CHLORHEXIDINE GLUCONATE 0.12% 15 ML UDCUP ORAL RINSE MM SCH (09:00)
[2025-02-19] MEDS: HYDROXYUREA 500 MG CAPSULE PO SCH (09:00)
[2025-02-19] MEDS ORDERED: ROCURONIUM BROMIDE 10 MG/ML 5 ML VIAL ONE (09:49)
[2025-02-19] MEDS ORDERED: HEPARIN SODIUM,PORCINE 10,000 UNITS/ML VIAL ONE (09:49)
[2025-02-19] MEDS ORDERED: ALBUMIN HUMAN 25%-12.5GM/50ML IV BOTTLE ONE (10:00)
[2025-02-19] MEDS ORDERED: HEPARIN SODIUM,PORCINE 1,000 UNITS/ML VIAL ONE (10:00)
[2025-02-19] MEDS: DEXTROSE 5%-WATER 500 ML IV ONE (11:14)
[2025-02-19 11:37] LABS: RED BLOOD CELL COUNT(AUTO) 2.83 MIL/uL (4.50-5.90); RED CELL DISTRIBUTION WIDTH 24.1 % (11.5-14.5)
[2025-02-19 11:40] LABS: WHITE BLOOD COUNT (AUTO) 83.6 K/uL (4.5-11.0)
[2025-02-19 11:42] LABS: PLATELET COUNT (AUTO) 1448 K/uL (150-450)
[2025-02-19 11:48] LABS: BAND NEUTROPHILS % (MANUAL) 9 % (0-5); LYMPHOCYTES % (MANUAL) 7 % (22-44); METAMYELOCYTES % 1 % (0-0); MONOCYTES % (MANUAL) 2 % (2-9); MYELOCYTES % 1 % (0-0); NUCLEATED RED BLOOD CELLS 3.0 % (0.0-0.0); SEGMENTED NEUTROPHILS % 80 % (40-70)
[2025-02-19 11:51] LABS: RBC MORPHOLOGY COMMENT ABNORMAL R
[2025-02-19] MEDS ORDERED: SODIUM CHLORIDE 0.9% 250 ML IV ONE ×3 (12:03→19:54)
[2025-02-19] MEDS ORDERED: PIPERACILLIN SODIUM/TAZOBACTAM 0.75 GM in DEXTROSE 5%-WATER 50 ML IV PRN (14:15)
[2025-02-19] MEDS: ALBUMIN HUMAN 25%-25GM/100ML 100 ML IV SCH (15:16)
[2025-02-19 16:37] LABS: RED BLOOD CELL COUNT(AUTO) 3.06 MIL/uL (4.50-5.90); RED CELL DISTRIBUTION WIDTH 23.7 % (11.5-14.5)
[2025-02-19 16:46] LABS: PLATELET COUNT (AUTO) 1228 K/uL (150-450); WHITE BLOOD COUNT (AUTO) 65.7 K/uL (4.5-11.0)
[2025-02-19 17:27] LABS: BAND NEUTROPHILS % (MANUAL) 19 % (0-5); LYMPHOCYTES % (MANUAL) 3 % (22-44); MONOCYTES % (MANUAL) 5 % (2-9); SEGMENTED NEUTROPHILS % 73 % (40-70)
[2025-02-19 17:28] LABS: RBC MORPHOLOGY COMMENT ABNORMAL RBC MORPH
[2025-02-19] MEDS: DEXTROSE 50%-WATER 25 GM/50 ML SYRINGE IVP PRN (18:26)
[2025-02-19] MEDS: DEXTROSE 10%-WATER 1,000 ML IV SCH (19:26)
[2025-02-19] MEDS: CHLORHEXIDINE GLUCONATE 2% TOWELETTE [2'S/6'S] TP SCH (21:05)
[2025-02-19] MEDS: ETHYL ALCOHOL 62% ANTISEPTIC NASAL SANITIZER 0.6 ML AMPUL NASAL SCH (21:06)
[2025-02-19 21:20] LABS: GLUCOMETER DEV NAME(LOC) ICU.S7; GLUCOSE,POINT OF CARE 239 MG/DL (70-110)
[2025-02-19 21:20] LABS: GLUCOMETER DEV NAME(LOC) ICU.S7; GLUCOSE,POINT OF CARE < 10 MG/DL (70-110)
[2025-02-19 21:35] LABS: GLUCOMETER DEV NAME(LOC) ICUN.6; GLUCOSE,POINT OF CARE 123 MG/DL (70-110)
[2025-02-20] VITALS (14 sets, daily range): BP systolic 85–130; BP diastolic 33–50; PULSE 72–86; RESP 18–30; TEMP 98.9–100.8; O2SAT 95–100
[2025-02-20 00:34] LABS: RED BLOOD CELL COUNT(AUTO) 3.20 MIL/uL (4.50-5.90); RED CELL DISTRIBUTION WIDTH 23.1 % (11.5-14.5)
[2025-02-20 00:37] LABS: WHITE BLOOD COUNT (AUTO) 51.8 K/uL (4.5-11.0)
[2025-02-20 00:39] LABS: PLATELET COUNT (AUTO) 882 K/uL (150-450)
[2025-02-20 01:17] LABS: BAND NEUTROPHILS % (MANUAL) 1 % (0-5); LYMPHOCYTES % (MANUAL) 3 % (22-44); MONOCYTES % (MANUAL) 2 % (2-9); SEGMENTED NEUTROPHILS % 94 % (40-70)
[2025-02-20 06:16] LABS: RED BLOOD CELL COUNT(AUTO) 2.97 MIL/uL (4.50-5.90); RED CELL DISTRIBUTION WIDTH 22.7 % (11.5-14.5)
[2025-02-20 06:25] LABS: CALCIUM, TOTAL 6.6 mg/dL (8.8-10.5); CREATININE 3.49 mg/dL (0.60-1.30); GLOMERULAR FILTR. RATE CALC 17.0 mL/min (>60); GLUCOSE,RANDOM 97.0 mg/dL (70-110); SODIUM SERUM 142.0 mmol/L (136-145); UREA NITROGEN, BLOOD 64.0 mg/dL (7-18)
[2025-02-20 06:29] LABS: PHOSPHORUS 7.4 mg/dL (2.5-4.9)
[2025-02-20 07:13] LABS: WHITE BLOOD COUNT (AUTO) 47.3 K/uL (4.5-11.0)
[2025-02-20 07:14] LABS: PLATELET COUNT (AUTO) 829 K/uL (150-450)
[2025-02-20 07:36] LABS: GLUCOMETER DEV NAME(LOC) ICU.S7; GLUCOSE,POINT OF CARE 28 MG/DL (70-110)
[2025-02-20] MEDS ORDERED: SODIUM CHLORIDE 0.9% 250 ML IV ONE (08:29)
[2025-02-20 09:10] LABS: BAND NEUTROPHILS % (MANUAL) 40 % (0-5); LYMPHOCYTES % (MANUAL) 2 % (22-44); MONOCYTES % (MANUAL) 6 % (2-9); SEGMENTED NEUTROPHILS % 52 % (40-70)
[2025-02-20 09:13] LABS: RBC MORPHOLOGY COMMENT ABNORMAL R
[2025-02-20] MEDS: DEXTROSE 5%-0.9% SODIUM CHL 1,000 ML IV SCH (09:22)
[2025-02-20] MEDS ORDERED: PANTOPRAZOLE SODIUM 40 MG/VIAL IVP SCH (11:30)
[2025-02-20] MEDS ORDERED: VANCOMYCIN 1GM/WATER(PEG/NADA) 200 ML IV PRN (12:00)
[2025-02-20 12:55] LABS: GLUCOMETER DEV NAME(LOC) ICU.S7; GLUCOSE,POINT OF CARE 106 MG/DL (70-110)
[2025-02-20] MEDS: PANTOPRAZOLE SODIUM 80 MG in SODIUM CHLORIDE 0.9% 100 ML IV SCH (13:24)
[2025-02-20] MEDS: VANCOMYCIN 1GM/WATER(PEG/NADA) 200 ML IV ONE (13:24)
[2025-02-20 14:30] LABS: TROPONIN I-HIGH SENSITIVITY 162 ng/L (<76)
[2025-02-20 15:25] LABS: GLUCOMETER DEV NAME(LOC) ICUN.6; GLUCOSE,POINT OF CARE 94 MG/DL (70-110)
[2025-02-20 20:06] LABS: GLUCOMETER DEV NAME(LOC) ICU.S7; GLUCOSE,POINT OF CARE 117 MG/DL (70-110)
[2025-02-21] VITALS (30 sets, daily range): BP systolic 92–264; BP diastolic 24–62; PULSE 73–149; RESP 16–24; TEMP 97.7–101.1; O2SAT 96–100
[2025-02-21] MEDS ORDERED: SODIUM CHLORIDE 0.9% 250 ML IV ONE ×2 (04:51→08:45)
[2025-02-21] MEDS ORDERED: SODIUM CHLORIDE 0.9% 500 ML IV ONE (04:52)
[2025-02-21 05:51] LABS: GLUCOMETER DEV NAME(LOC) ICUN.6; GLUCOSE,POINT OF CARE 105 MG/DL (70-110)
[2025-02-21 05:51] LABS: GLUCOMETER DEV NAME(LOC) ICUN.6; GLUCOSE,POINT OF CARE 108 MG/DL (70-110)
[2025-02-21 06:03] LABS: PLATELET COUNT (AUTO) 749 K/uL (150-450); RED BLOOD CELL COUNT(AUTO) 2.76 MIL/uL (4.50-5.90); RED CELL DISTRIBUTION WIDTH 24.4 % (11.5-14.5); WHITE BLOOD COUNT (AUTO) 27.6 K/uL (4.5-11.0)
[2025-02-21 06:10] LABS: PHOSPHORUS 8.0 mg/dL (2.5-4.9)
[2025-02-21 06:12] LABS: ASPARTATE AMINOTRANSFERASE 198.0 U/L (15-37); CREATININE 4.97 mg/dL (0.60-1.30); GLOMERULAR FILTR. RATE CALC 12.0 mL/min (>60); GLUCOSE,RANDOM 119.0 mg/dL (70-110); SODIUM SERUM 141.0 mmol/L (136-145); TOTAL PROTEIN, SERUM 5.6 g/dL (6.4-8.2); UREA NITROGEN, BLOOD 85.0 mg/dL (7-18)
[2025-02-21 07:31] LABS: CALCIUM, TOTAL 5.8 mg/dL (8.8-10.5)
[2025-02-21 11:00] LABS: BAND NEUTROPHILS % (MANUAL) 46 % (0-5); LYMPHOCYTES % (MANUAL) 6 % (22-44); MONOCYTES % (MANUAL) 2 % (2-9); RBC MORPHOLOGY COMMENT ABNORMAL RBC MORPH; SEGMENTED NEUTROPHILS % 46 % (40-70)
[2025-02-21] MEDS: ALBUMIN HUMAN 5%-12.5GM/250ML 250 ML IV ONE (14:11)
[2025-02-21] MEDS: DEXMEDETOMIDINE 400 MCG/NS 100 ML IV PRN (14:32)
[2025-02-21 15:47] LABS: ABG BASE EXCESS -10.2 mmol/L (-2.0-3.0); ABG CARBOXYHEMOGLOBIN 0.8 % (0.5-1.5); ABG HCO3 16.8 mmol/L (21.0-28.0); ABG METHEMOGLOBIN 0.1 % (0.0-1.5); ABG OXYGEN CONTENT 11.5 mL/dL (15.0-23.0); ABG OXYGEN SATURATION 95.9 % (94.0-98.0); ABG OXYHEMOGLOBIN 95.0 % (94.0-98.0); ABG PCO2 36 mmHg (32.0-48.0); ABG PH 7.282 (7.350-7.450); ABG TOTAL HEMOGLOBIN 8.5 G/dL (13.5-17.5); FRACTIONATED INSPIRED OXYGEN 40.0 % (21-100.0); PO2, ARTERIAL BG 88.5 mmHg (83.0-108.0); SOURCE, BLOOD GAS ARTERIAL; TEMPERATURE, FAHRENHEIT, BG 99.0 FAHREN (96.0-98.6)
[2025-02-21 15:51] LABS: SITE, BLOOD GAS ARTERIAL LINE
[2025-02-21 15:52] LABS: ABG A-A DIFF O2 155.3 mmHg (10-20.0); CPAP, BG 0 cm H2O; O2 DEVICE,BLOOD GAS VENTILATOR (ROOM AIR); PRESSURE SUPPORT, BG 8 cm H2O; VENT MODE, BG CPAP (ROOM AIR)
[2025-02-21 15:56] LABS: GLUCOMETER DEV NAME(LOC) ICU.S7; GLUCOSE,POINT OF CARE 104 MG/DL (70-110)
[2025-02-21] MEDS: [UNRECOGNIZED DRUG - REMARK] MISC SCH (16:51)
[2025-02-21 17:06] LABS: PLATELET COUNT (AUTO) 658 K/uL (150-450); RED BLOOD CELL COUNT(AUTO) 3.23 MIL/uL (4.50-5.90); RED CELL DISTRIBUTION WIDTH 22.5 % (11.5-14.5); WHITE BLOOD COUNT (AUTO) 18.5 K/uL (4.5-11.0)
[2025-02-21 17:20] LABS: BAND NEUTROPHILS % (MANUAL) 43 % (0-5); LYMPHOCYTES % (MANUAL) 5 % (22-44); MONOCYTES % (MANUAL) 4 % (2-9); SEGMENTED NEUTROPHILS % 48 % (40-70); WBC MORPHOLOGY TOXIC VACUOLATION
[2025-02-21 17:22] LABS: RBC MORPHOLOGY COMMENT ABNORMAL R
[2025-02-21] MEDS: METOCLOPRAMIDE HCL 5 MG/ML 2 ML VIAL IVP ONE (18:33)
[2025-02-21] MEDS: HEPARIN SODIUM,PORCINE 1,000 UNITS/ML VIAL IVCATH ONE ×2 (19:56)
[2025-02-21 20:40] LABS: CALCIUM, TOTAL 7.4 mg/dL (8.8-10.5); CREATININE 2.3 mg/dL (0.60-1.30); GLOMERULAR FILTR. RATE CALC 28.0 mL/min (>60); GLUCOSE,RANDOM 105.0 mg/dL (70-110); SODIUM SERUM 136.0 mmol/L (136-145); UREA NITROGEN, BLOOD 36.0 mg/dL (7-18)
[2025-02-21] MEDS: METOPROLOL TARTRATE 5 MG/5 ML VIAL IVP ONE (20:56)
[2025-02-22] VITALS (14 sets, daily range): BP systolic 86–136; BP diastolic 42–59; PULSE 85–157; RESP 17–32; TEMP 98.8–101.4; O2SAT 83–100
[2025-02-22 01:11] LABS: GLUCOMETER DEV NAME(LOC) ICU.S7; GLUCOSE,POINT OF CARE 105 MG/DL (70-110)
[2025-02-22] MEDS: ACETAMINOPHEN 1000 MG/ISO-OSM 100 ML IV ONE (01:19)
[2025-02-22] MEDS ORDERED: SODIUM CHLORIDE 0.9% 250 ML IV ONE (04:35)
[2025-02-22 06:05] LABS: PLATELET COUNT (AUTO) 579 K/uL (150-450); RED BLOOD CELL COUNT(AUTO) 3.19 MIL/uL (4.50-5.90); RED CELL DISTRIBUTION WIDTH 22.3 % (11.5-14.5); WHITE BLOOD COUNT (AUTO) 23.8 K/uL (4.5-11.0)
[2025-02-22] MEDS ORDERED: ADENOSINE 3 MG/ML 2 ML VIAL IVP ONE (06:05)
[2025-02-22] MEDS: ADENOSINE 3 MG/ML 2 ML VIAL IVP ONE (06:09)
[2025-02-22 06:41] LABS: CALCIUM, TOTAL 6.6 mg/dL (8.8-10.5); CREATININE 3.11 mg/dL (0.60-1.30); GLOMERULAR FILTR. RATE CALC 20 mL/min (>60); GLUCOSE,RANDOM 111 mg/dL (70-110); SODIUM SERUM 137 mmol/L (136-145); UREA NITROGEN, BLOOD 48 mg/dL (7-18)
[2025-02-22] MEDS: ADENOSINE 3 MG/ML 2 ML VIAL IVP PRN (06:42)
[2025-02-22] MEDS: PHENYLEPHRINE 200 MG/D5%-WATER 250 ML IV PRN (06:43)
[2025-02-22 06:47] LABS: TROPONIN I-HIGH SENSITIVITY 181 ng/L (<76)
[2025-02-22 06:51] LABS: PHOSPHORUS 5.0 mg/dL (2.5-4.9)
[2025-02-22 06:57] LABS: CREATINE KINASE, TOTAL ONLY 1751.0 U/L (39-308)
[2025-02-22 07:22] LABS: GLUCOMETER DEV NAME(LOC) ICUN.6; GLUCOSE,POINT OF CARE 84 MG/DL (70-110)
[2025-02-22 07:29] LABS: GLUCOMETER DEV NAME(LOC) ICUN.6; GLUCOSE,POINT OF CARE 114 MG/DL (70-110)
[2025-02-22 08:59] LABS: BAND NEUTROPHILS % (MANUAL) 2 % (0-5); LYMPHOCYTES % (MANUAL) 2 % (22-44); MONOCYTES % (MANUAL) 1 % (2-9); NUCLEATED RED BLOOD CELLS 1.0 % (0.0-0.0); SEGMENTED NEUTROPHILS % 95 % (40-70)
[2025-02-22 09:01] LABS: RBC MORPHOLOGY COMMENT ABNORMAL R
[2025-02-22] MEDS: CALCIUM GLUCONATE 100 MG/ML 10 ML IVP ONE (09:53)
[2025-02-22] MEDS: MAGNESIUM SULFATE 1 GM in DEXTROSE 5%-WATER 50 ML IV ONE (09:54)
[2025-02-22] MEDS: METOPROLOL TARTRATE 5 MG/5 ML VIAL IVP ONE (10:06)
[2025-02-22] MEDS: VANCOMYCIN 1GM/WATER(PEG/NADA) 200 ML IV ONE (12:06)
[2025-02-22 13:16] LABS: GLUCOMETER DEV NAME(LOC) ICUN.6; GLUCOSE,POINT OF CARE 41 MG/DL (70-110)
[2025-02-22 13:16] LABS: GLUCOMETER DEV NAME(LOC) ICUN.6; GLUCOSE,POINT OF CARE 113 MG/DL (70-110)
[2025-02-22] MEDS: PIPERACILLIN SODIUM/TAZOBACTAM 2.25 GM in DEXTROSE 5%-WATER 50 ML IV SCH (14:12)
[2025-02-22 14:30] LABS: ABG BASE EXCESS -4.9 mmol/L (-2.0-3.0); ABG CARBOXYHEMOGLOBIN 1.1 % (0.5-1.5); ABG HCO3 20.4 mmol/L (21.0-28.0); ABG METHEMOGLOBIN 0.1 % (0.0-1.5); ABG OXYGEN CONTENT 9.8 mL/dL (15.0-23.0); ABG OXYHEMOGLOBIN 80.5 % (94.0-98.0); ABG PCO2 49 mmHg (32.0-48.0); ABG PH 7.275 (7.350-7.450); ABG TOTAL HEMOGLOBIN 8.6 G/dL (13.5-17.5); FRACTIONATED INSPIRED OXYGEN 50.0 % (21-100.0); SOURCE, BLOOD GAS ARTERIAL; TEMPERATURE, FAHRENHEIT, BG 100.0 FAHREN (96.0-98.6)
[2025-02-22 14:35] LABS: ABG A-A DIFF O2 249.6 mmHg (10-20.0); ABG OXYGEN SATURATION 81.5 % (94.0-98.0); O2 DEVICE,BLOOD GAS VENTILATOR (ROOM AIR); PEEP,BG 5 cm H2O; PO2, ARTERIAL BG 51.3 mmHg (83.0-108.0); SITE, BLOOD GAS ARTERIAL LINE
[2025-02-22 15:47] LABS: FRACTIONATED INSPIRED OXYGEN 65.0 % (21-100.0); SOURCE, BLOOD GAS ARTERIAL; TEMPERATURE, FAHRENHEIT, BG 100.0 FAHREN (96.0-98.6)
[2025-02-22 15:58] LABS: APPEARANCE,URINE TURBID (CLEAR); GLUCOSE, URINE (UA) TRACE mg/dL (NEGATIVE); LEUKOCYTE ESTERASE ,URINE LARGE (NEGATIVE); NITRATE,URINE NEGATIVE (NEGATIVE); OCCULT BLOOD,URINE LARGE (NEGATIVE); SPECIFIC GRAVITIY, URINE 1.023 (1.003-1.030)
[2025-02-22 16:05] LABS: ABG BASE EXCESS -6.5 mmol/L (-2.0-3.0); ABG CARBOXYHEMOGLOBIN 1.5 % (0.5-1.5); ABG HCO3 19.2 mmol/L (21.0-28.0); ABG METHEMOGLOBIN 0.0 % (0.0-1.5); ABG OXYGEN CONTENT 10.2 mL/dL (15.0-23.0); ABG OXYHEMOGLOBIN 81.1 % (94.0-98.0); ABG PCO2 44 mmHg (32.0-48.0); ABG PH 7.282 (7.350-7.450); ABG TOTAL HEMOGLOBIN 8.9 G/dL (13.5-17.5)
[2025-02-22 16:12] LABS: SQUAMOUS EPITHELIAL CELL,UR Few /LPF (None Seen); SULFOSALICYLIC ACID,URINE 3+ (Negative)
[2025-02-22 16:31] LABS: ABG OXYGEN SATURATION 82.3 % (94.0-98.0); PO2, ARTERIAL BG 53.8 mmHg (83.0-108.0); SITE, BLOOD GAS LFT BRACHIAL
[2025-02-22 16:32] LABS: ABG A-A DIFF O2 360.6 mmHg (10-20.0); O2 DEVICE,BLOOD GAS VENTILATOR (ROOM AIR); PEEP,BG 8 cm H2O; SET RATE, BG 18.0 min.
[2025-02-22] MEDS: METOPROLOL TARTRATE 5 MG/5 ML VIAL IVP PRN (17:22)
[2025-02-22 17:37] LABS: ABG BASE EXCESS -6.4 mmol/L (-2.0-3.0); ABG CARBOXYHEMOGLOBIN 1.0 % (0.5-1.5); ABG HCO3 19.3 mmol/L (21.0-28.0); ABG METHEMOGLOBIN 0.1 % (0.0-1.5); ABG OXYGEN CONTENT 9.8 mL/dL (15.0-23.0); ABG OXYHEMOGLOBIN 80.9 % (94.0-98.0); ABG PCO2 46 mmHg (32.0-48.0); ABG PH 7.271 (7.350-7.450); ABG TOTAL HEMOGLOBIN 8.6 G/dL (13.5-17.5); FRACTIONATED INSPIRED OXYGEN 65.0 % (21-100.0); SOURCE, BLOOD GAS ARTERIAL; TEMPERATURE, FAHRENHEIT, BG 98.8 FAHREN (96.0-98.6)
[2025-02-22 17:38] LABS: ABG A-A DIFF O2 362.3 mmHg (10-20.0); ABG OXYGEN SATURATION 81.8 % (94.0-98.0); O2 DEVICE,BLOOD GAS VENTILATOR (ROOM AIR); PEEP,BG 10 cm H2O; PO2, ARTERIAL BG 51.3 mmHg (83.0-108.0); SITE, BLOOD GAS ARTERIAL LINE
[2025-02-22 17:38] LABS: CALCIUM, TOTAL 6.1 mg/dL (8.8-10.5); CREATININE 3.44 mg/dL (0.60-1.30); GLOMERULAR FILTR. RATE CALC 18.0 mL/min (>60); GLUCOSE,RANDOM 87.0 mg/dL (70-110); SODIUM SERUM 141.0 mmol/L (136-145); UREA NITROGEN, BLOOD 52.0 mg/dL (7-18)
[2025-02-22 17:42] LABS: PHOSPHORUS 4.6 mg/dL (2.5-4.9)
[2025-02-22 18:06] LABS: GLUCOMETER DEV NAME(LOC) ICU.S7; GLUCOSE,POINT OF CARE 95 MG/DL (70-110)
[2025-02-22] MEDS ORDERED: IOHEXOL 9 MG/ML 500 ML BOTTLE ONE (18:57)
[2025-02-22 20:12] LABS: ABG BASE EXCESS -10.5 mmol/L (-2.0-3.0); ABG CARBOXYHEMOGLOBIN 1.6 % (0.5-1.5); ABG HCO3 16.4 mmol/L (21.0-28.0); ABG METHEMOGLOBIN 0.1 % (0.0-1.5); ABG OXYGEN CONTENT 8.0 mL/dL (15.0-23.0); ABG OXYGEN SATURATION 87.8 % (94.0-98.0); ABG OXYHEMOGLOBIN 86.3 % (94.0-98.0); ABG PCO2 39 mmHg (32.0-48.0); ABG PH 7.253 (7.350-7.450); FRACTIONATED INSPIRED OXYGEN 65.0 % (21-100.0); PO2, ARTERIAL BG 62.2 mmHg (83.0-108.0); TEMPERATURE, FAHRENHEIT, BG 99.3 FAHREN (96.0-98.6)
[2025-02-22 20:16] LABS: ABG TOTAL HEMOGLOBIN 6.5 G/dL (13.5-17.5)
[2025-02-22 20:18] LABS: SITE, BLOOD GAS RT RADIAL; SOURCE, BLOOD GAS ART LINE
[2025-02-22 20:19] LABS: ABG A-A DIFF O2 358.7 mmHg (10-20.0); O2 DEVICE,BLOOD GAS VENTILATOR (ROOM AIR); PATIENT RATE, BG 30.0 min.; PEEP,BG 10 cm H2O; SET RATE, BG 24.0 min.; SPONTANEOUS VT, BG 424 ml; VT, ABG 400 ml
[2025-02-23] VITALS (22 sets, daily range): BP systolic 103–161; BP diastolic 28–56; PULSE 80–144; RESP 15–33; TEMP 98.9–100; O2SAT 90–99
[2025-02-23 06:11] LABS: CALCIUM, TOTAL 6.4 mg/dL (8.8-10.5); CREATININE 4.14 mg/dL (0.60-1.30); GLOMERULAR FILTR. RATE CALC 14.0 mL/min (>60); GLUCOSE,RANDOM 102.0 mg/dL (70-110); SODIUM SERUM 141.0 mmol/L (136-145); UREA NITROGEN, BLOOD 56.0 mg/dL (7-18)
[2025-02-23 06:15] LABS: PHOSPHORUS 5.4 mg/dL (2.5-4.9)
[2025-02-23 06:50] LABS: GLUCOMETER DEV NAME(LOC) ICUN.6; GLUCOSE,POINT OF CARE 97 MG/DL (70-110)
[2025-02-23] MEDS ORDERED: IOHEXOL 9 MG/ML 500 ML BOTTLE ONE (10:03)
[2025-02-23] MEDS: *CLINICAL-LEVOFLOXACIN IVPB DOSING CLINICAL ONE (14:36)
[2025-02-23] MEDS: HEPARIN SODIUM,PORCINE 1,000 UNITS/ML VIAL IVCATH ONE ×2 (15:06)
[2025-02-23 15:15] LABS: PLATELET COUNT (AUTO) 296 K/uL (150-450); RED BLOOD CELL COUNT(AUTO) 2.90 MIL/uL (4.50-5.90); RED CELL DISTRIBUTION WIDTH 23.3 % (11.5-14.5)
[2025-02-23 15:24] LABS: WHITE BLOOD COUNT (AUTO) 44.5 K/uL (4.5-11.0)
[2025-02-23 16:03] LABS: BAND NEUTROPHILS % (MANUAL) 6 % (0-5); EOSINOPHILS % (MANUAL) 1 % (1-6); LYMPHOCYTES % (MANUAL) 7 % (22-44); MONOCYTES % (MANUAL) 1 % (2-9); RBC MORPHOLOGY COMMENT ABNORMAL RBC MORPH; SEGMENTED NEUTROPHILS % 85 % (40-70)
[2025-02-23] MEDS: LEVOFLOXACIN 750 MG/D5% WATER 150 ML IV ONE (17:23)
[2025-02-23 17:35] LABS: GLUCOMETER DEV NAME(LOC) ICUN.6; GLUCOSE,POINT OF CARE 105 MG/DL (70-110)
[2025-02-23 18:05] LABS: GLUCOMETER DEV NAME(LOC) ICUN.6; GLUCOSE,POINT OF CARE 170 MG/DL (70-110)
[2025-02-23] MEDS: MetroNIDAZOLE 500 MG/NACL 100 ML IV SCH (18:29)
[2025-02-23] MEDS ORDERED: SODIUM CHLORIDE 0.9% 250 ML IV ONE (19:16)
[2025-02-23 23:01] LABS: PLATELET COUNT (AUTO) 325 K/uL (150-450); RED BLOOD CELL COUNT(AUTO) 2.87 MIL/uL (4.50-5.90); RED CELL DISTRIBUTION WIDTH 23.8 % (11.5-14.5)
[2025-02-23 23:07] LABS: WHITE BLOOD COUNT (AUTO) 50.5 K/uL (4.5-11.0)
[2025-02-23 23:47] LABS: BAND NEUTROPHILS % (MANUAL) 6 % (0-5); LYMPHOCYTES % (MANUAL) 4 % (22-44); MONOCYTES % (MANUAL) 30 % (2-9); RBC MORPHOLOGY COMMENT ABNORMAL RBC MORPH; SEGMENTED NEUTROPHILS % 60 % (40-70)
[2025-02-24] VITALS (16 sets, daily range): BP systolic 64–139; BP diastolic 34–61; PULSE 53–96; RESP 24–32; TEMP 96.9–98.9; O2SAT 78–99
[2025-02-24 00:46] LABS: GLUCOMETER DEV NAME(LOC) ICU.S7; GLUCOSE,POINT OF CARE 118 MG/DL (70-110)
[2025-02-24 00:46] LABS: GLUCOMETER DEV NAME(LOC) ICU.S7; GLUCOSE,POINT OF CARE 84 MG/DL (70-110)
[2025-02-24 05:45] LABS: PLATELET COUNT (AUTO) 298 K/uL (150-450); RED BLOOD CELL COUNT(AUTO) 2.83 MIL/uL (4.50-5.90); RED CELL DISTRIBUTION WIDTH 23.7 % (11.5-14.5)
[2025-02-24 05:51] LABS: WHITE BLOOD COUNT (AUTO) 51.5 K/uL (4.5-11.0)
[2025-02-24 05:53] LABS: ASPARTATE AMINOTRANSFERASE 660.0 U/L (15-37); CALCIUM, TOTAL 7.0 mg/dL (8.8-10.5); CREATININE 3.06 mg/dL (0.60-1.30); GLOMERULAR FILTR. RATE CALC 20.0 mL/min (>60); GLUCOSE,RANDOM 111.0 mg/dL (70-110); SODIUM SERUM 138.0 mmol/L (136-145); TOTAL PROTEIN, SERUM 5.4 g/dL (6.4-8.2); UREA NITROGEN, BLOOD 43.0 mg/dL (7-18)
[2025-02-24 06:11] LABS: GLUCOMETER DEV NAME(LOC) ICU.S7; GLUCOSE,POINT OF CARE 110 MG/DL (70-110)
[2025-02-24] MEDS: *CLINICAL-MEROPENEM DOSING CLINICAL ONE (07:05)
[2025-02-24 07:37] LABS: BAND NEUTROPHILS % (MANUAL) 6 % (0-5); LYMPHOCYTES % (MANUAL) 2 % (22-44); MONOCYTES % (MANUAL) 2 % (2-9); SEGMENTED NEUTROPHILS % 90 % (40-70)
[2025-02-24] MEDS: AMIODARONE HCL 360 MG in DEXTROSE 5%-WATER 242.8 ML IV ONE (08:28)
[2025-02-24] MEDS: PANTOPRAZOLE SODIUM 40 MG/VIAL IVP SCH (08:30)
[2025-02-24] MEDS ORDERED: MEROPENEM 500 MG in SODIUM CHLORIDE 0.9% 50 ML IV SCH (09:00)
[2025-02-24] MEDS: MEROPENEM 1 GM in SODIUM CHLORIDE 0.9% 50 ML IV SCH (10:28)
[2025-02-24 12:26] LABS: PLATELET COUNT (AUTO) 301 K/uL (150-450); RED BLOOD CELL COUNT(AUTO) 2.85 MIL/uL (4.50-5.90); RED CELL DISTRIBUTION WIDTH 24.1 % (11.5-14.5)
[2025-02-24 12:29] LABS: WHITE BLOOD COUNT (AUTO) 53.4 K/uL (4.5-11.0)
[2025-02-24 12:48] LABS: BAND NEUTROPHILS % (MANUAL) 7 % (0-5); LYMPHOCYTES % (MANUAL) 2 % (22-44); MONOCYTES % (MANUAL) 1 % (2-9); SEGMENTED NEUTROPHILS % 90 % (40-70)
[2025-02-24] MEDS: AMIODARONE HCL 540 MG in DEXTROSE 5%-WATER 250 ML IV ONE (13:07)
[2025-02-24] MEDS ORDERED: SODIUM CHLORIDE 0.9% 250 ML IV ONE (15:42)
[2025-02-24 16:11] LABS: GLUCOMETER DEV NAME(LOC) ICU.S7; GLUCOSE,POINT OF CARE 89 MG/DL (70-110)
[2025-02-24] MEDS: DOPamine 400MG/D5W[STANDARD] 250 ML IV PRN (17:29)
[2025-02-24] MEDS: EPINEPHrine 5 MG in DEXTROSE 5%-WATER 245 ML IV PRN (18:58)
[2025-02-24] MEDS ORDERED: HEPARIN SODIUM,PORCINE 1,000 UNITS/ML VIAL IVP ONE (19:38)
[2025-02-24] MEDS ORDERED: CASPOFUNGIN ACETATE 70 MG in SODIUM CHLORIDE 0.9% 250 ML IV ONE (20:00)
[2025-02-24 21:16] LABS: GLUCOMETER DEV NAME(LOC) ICUN.6; GLUCOSE,POINT OF CARE 59 MG/DL (70-110)
[2025-02-25 04:41] LABS: GLUCOMETER DEV NAME(LOC) ICU.S7; GLUCOSE,POINT OF CARE 81 MG/DL (70-110)
[2025-02-25 04:41] LABS: GLUCOMETER DEV NAME(LOC) ICU.S7; GLUCOSE,POINT OF CARE 113 MG/DL (70-110)
[2025-02-25] MEDS ORDERED: AMIODARONE HCL 750 MG in DEXTROSE 5%-WATER 485 ML IV SCH (07:00)
[2025-02-25] MEDS ORDERED: LEVOFLOXACIN 500 MG/D5% WATER 100 ML IV SCH (16:00)
[2025-02-25] MEDS ORDERED: CASPOFUNGIN ACETATE 50 MG in SODIUM CHLORIDE 0.9% 250 ML IV SCH (20:00)
== END 2025-02-24 19:39 | DRG 720 ==
LOC: EMS 20:51 → EDH 22:59 → ICU 02-19 11:08
PROVIDERS: ADMIT Internal Medicine; ATTEND Internal Medicine
PROC: 0BH17EZ Insertion of Endotracheal Airway into Trachea, Via Natural or Artificial Opening (ICD-10-PCS; 2025-02-18)
PROC: 5A1955Z Respiratory Ventilation, Greater than 96 Consecutive Hours (ICD-10-PCS; 2025-02-18)
PROC: 30233N1 Transfusion of Nonautologous Red Blood Cells into Peripheral Vein, Percutaneous Approach (ICD-10-PCS; principal; 2025-02-19)
PROC: 5A1D70Z Performance of Urinary Filtration, Intermittent, Less than 6 Hours Per Day (ICD-10-PCS; 2025-02-19)
PROC: 03HY32Z Insertion of Monitoring Device into Upper Artery, Percutaneous Approach (ICD-10-PCS; 2025-02-19)
PROC: 06HY33Z Insertion of Infusion Device into Lower Vein, Percutaneous Approach (ICD-10-PCS; 2025-02-19)
PROC: 06HY33Z Insertion of Infusion Device into Lower Vein, Percutaneous Approach (ICD-10-PCS; 2025-02-19)
PROC: B54BZZA Ultrasonography of Right Lower Extremity Veins, Guidance (ICD-10-PCS; 2025-02-19)
PROC: B54CZZA Ultrasonography of Left Lower Extremity Veins, Guidance (ICD-10-PCS; 2025-02-19)
PROC: 0DJ08ZZ Inspection of Upper Intestinal Tract, Via Natural or Artificial Opening Endoscopic (ICD-10-PCS; 2025-02-20)
PROC: 5A1D70Z Performance of Urinary Filtration, Intermittent, Less than 6 Hours Per Day (ICD-10-PCS; 2025-02-21)
PROC: 5A1D70Z Performance of Urinary Filtration, Intermittent, Less than 6 Hours Per Day (ICD-10-PCS; 2025-02-23)
DX: A41.51 Sepsis due to Escherichia coli [E. coli] (principal); N17.0 Acute kidney failure with tubular necrosis; R65.21 Severe sepsis with septic shock; J96.01 Acute respiratory failure with hypoxia; G93.41 Metabolic encephalopathy; E43 Unspecified severe protein-calorie malnutrition; K22.11 Ulcer of esophagus with bleeding; J69.0 Pneumonitis due to inhalation of food and vomit; E87.20 Acidosis, unspecified; D64.9 Anemia, unspecified; E87.5 Hyperkalemia; E87.0 Hyperosmolality and hypernatremia; E86.0 Dehydration; K59.00 Constipation, unspecified; N18.9 Chronic kidney disease, unspecified; E87.6 Hypokalemia; N39.0 Urinary tract infection, site not specified; I50.9 Heart failure, unspecified; I13.0 Hypertensive heart and chronic kidney disease with heart failure and stage 1 through stage 4 chronic kidney disease, or unspecified chronic kidney disease; F17.210 Nicotine dependence, cigarettes, uncomplicated; K25.4 Chronic or unspecified gastric ulcer with hemorrhage; F15.10 Other stimulant abuse, uncomplicated; D68.9 Coagulation defect, unspecified; D75.839 Thrombocytosis, unspecified; S30.0XXA Contusion of lower back and pelvis, initial encounter; X58.XXXA Exposure to other specified factors, initial encounter; Y93.89 Activity, other specified; Y92.89 Other specified places as the place of occurrence of the external cause; Y99.8 Other external cause status; I47.10 Supraventricular tachycardia, unspecified; D47.1 Chronic myeloproliferative disease; B95.2 Enterococcus as the cause of diseases classified elsewhere; N32.1 Vesicointestinal fistula; Z63.8 Other specified problems related to primary support group; Z79.899 Other long term (current) drug therapy; Z68.25 Body mass index [BMI] 25.0-25.9, adult
CPT/HCPCS: 31500; 51702; 70450; 71045; 71250; 72192; 74018; 74150; 74176; 76705; 80048; 80053; 80076; 80202; 80307; 80320; 81001; 81002; 82140; 82550; 82693; 82805; 82962; 83540; 83550; 83605; 83690; 83735; 83880; 83930; 84100; 84145; 84484; 85025; 85045; 85610; 85730; 86850; 86900; 86901; 86923; 87040; 87070; 87077; 87081; 87086; 87186; 87205; 87340; 90935; 93005; 93306; 93925; 93930; 93970; 94002; 94003; 99291; G0480; J0131; J0153; J0169; J0282; J0610; J0637; J1265; J1644; J1815; J1956; J2185; J2250; J2370; J2470; J2543; J2704; J2765; J3010; J3475; J3490; J7030; J7040; J7042; J7050; J7060; P9016; P9041; P9046; P9047; 36415-L1; 36415-TC; Z7610